=== PATIENT | female | born 1980 | race Caucasian/White ===

== ENCOUNTER 2023-10-16 21:15 | Emergency (ER) | payer SELFPAY ==
[~2023-10-16] VITALS: Ht 162.6 cm; Wt 114.0 kg
[2023-10-16 22:18] VITALS: O2SAT 97
[2023-10-17 00:59] LABS: CLARITY URINE CLEAR (CLEAR); COLOR URINE YELLOW (YELLOW); GLUCOSE URINE NEGATIVE (NEGATIVE); KETONES URINE NEGATIVE (NEGATIVE); LEUKOCYTE ESTERASE URINE NEGATIVE (NEGATIVE); NITRITE URINE NEGATIVE (NEGATIVE); OCCULT BLOOD URINE NEGATIVE (NEGATIVE); PH URINE 5.5 (4.5-8.0); PROTEIN URINE NEGATIVE (NEGATIVE); SPECIFIC GRAVITY URINE 1.027 (1.005-1.030); UROBILINOGEN URINE 0.2 E.U./dL (0.2-1.0)
[2023-10-17 01:19] LABS: BASOPHILS % 1.4 % (0.0-2.0); HEMATOCRIT. 42.2 % (36.0-48.0); HEMOGLOBIN. 13.7 g/dL (12.0-16.0); LYMPHOCYTES % 29.2 % (20.0-50.0); MEAN CORPUSCULAR HEMOGLOBIN 28.2 pg (28.0-32.0); MEAN CORPUSCULAR HGB CONC 32.6 g/dL (31.0-37.0); MEAN CORPUSCULAR VOLUME 86.6 fL (81.0-99.0); MEAN PLATELET VOLUME 7.9 fl (7.4-10.4); MONOCYTES % 5.3 % (2.0-8.0); NEUTROPHILS % 62.1 % (40.0-76.0); PLATELET 424 x1000/uL (130-400); RED BLOOD CELL COUNT 4.87 mill/uL (4.2-5.4); RED CELL DISTRIBUTION WIDTH 15.3 % (11.6-14.6); WHITE BLOOD COUNT 10.9 x1000/uL (4.5-11.0)
[2023-10-17 01:30] LABS: CHLORIDE 106 mEq/L (98-107); INR 0.9; POTASSIUM 4.3 mEq/L (3.5-5.1); PROTHROMBIN TIME 10.2 sec (9.6-11.0); SODIUM 136 mEq/L (136-145)
[2023-10-17 01:31] LABS: HCG SCREEN NEGATIVE
[2023-10-17 01:32] LABS: CALCIUM 9.5 mg/dL (8.7-10.4); CARBON DIOXIDE 23 mEq/L (21-32)
[2023-10-17 01:37] LABS: CREATININE 0.7 mg/dL (0.6-1.0); GLUCOSE 93 mg/dL (70-105); UREA NITROGEN BLOOD 12 mg/dL (9-23)
[2023-10-17 01:39] LABS: ALANINE AMINOTRANSFERASE 28 IU/L (10-49); ASPARTATE AMINOTRANSFERASE 21 IU/L (<34); BILIRUBIN TOTAL 0.3 mg/dL (0.1-1.0); PROTEIN TOTAL 8.2 g/dL (6.0-8.3)
[2023-10-17 01:49] LABS: BILIRUBIN DIRECT < 0.1 mg/dL (<=3.0)
[2023-10-17] MEDS ORDERED: ACETAMINOPHEN 1000MG/100ML 100 ML IV NR (02:00)
[2023-10-17] MEDS ORDERED: SODIUM CHLORIDE 0.9% 1,000 ML IV NR (02:00)
[2023-10-17] MEDS ORDERED: ONDANSETRON HCL 4MG/2ML INJ IV NR (02:00)
[2023-10-17 02:10] VITALS: BP 121/74; PULSE 87; RESP 26; TEMP 98.5
== END 2023-10-17 01:27 | disposition left against medical advice (07) ==
LOC: ER 21:15
DX: R10.31 Right lower quadrant pain (principal)
CPT/HCPCS: 36415; 80048; 80076; 81003; 83605; 84703; 85025; 99283; J0131